=== PATIENT | male | born 1975 | race Caucasian/White ===

== ENCOUNTER 2022-05-18 10:36 | Emergency (ER) | payer SELFPAY ==
[~2022-05-18 10:36] MED LIST: Iopamidol 300 61% 100 ML VIAL FS ONE
[2022-05-18] MEDS ORDERED: Ondansetron PF 4 MG/2 ML Vial ONE (11:21)
[2022-05-18] MEDS ORDERED: Ketorolac Tromethamine 30 MG/ML VIAL ONE (11:21)
[2022-05-18] MEDS ORDERED: Fentanyl 100 MCG/2 ML VIAL ONE (11:21)
[2022-05-18 11:43] LABS: #Basophils 0.1 10x3/uL (0.0-0.2); #Eosinphils 0.3 10x3/uL (0.0-0.5); #Neutrophils 12.6 10x3/uL (1.5-8.4); %Basophils 0.4 % (0.0-2.0); %Eosinophils 1.8 % (0.0-6.0); %Lymphocytes 10.6 % (18.0-47.0); %Monocytes 6.4 % (0.0-10.0); %Neutrophils 80.1 % (40.0-75.0); Hemoglobin 15.4 g/dL (13.5-17.5); Mean Corpuscular HGB CONC 34.8 g/dL (32.0-36.0); Mean Corpuscular Hemoglobin 30.1 pg (27.0-33.0); Mean Corpuscular Volume 86.3 fl (81.2-95.1); Mean Platelet Volume 8.8 fl (7.4-10.4); Platelet Count 422 10x3/uL (150-450); RBC Distribution Width 12.4 % (11.5-14.5); Red Blood Cell (RBC) Count 5.12 10x6/uL (4.32-5.72); White Blood Cell (WBC) Count 15.7 10x3/uL (3.5-10.5)
[2022-05-18 11:44] LABS: ALT (SGPT) 12 U/L (8-55); AST (SGOT) 11 U/L (5-34); Alkaline Phosphatase 91 U/L (40-110); Anion Gap 14 mmol/L (10-20); BUN (Urea Nitrogen) 15 mg/dL (8.9-20.6); Bilirubin, Total 0.3 mg/dL (0.2-1.2); Calc. Creatinine Clearance 0 mL/min (70-130); Calcium 10.3 mg/dL (7.8-10.44); Carbon Dioxide 27 mmol/L (22-29); Chloride 98 mmol/L (98-107); Estimated GFR 65; Globulin 3.9 g/dL (2.4-3.5); Glucose 321 mg/dL (70-105); Potassium 4.2 mmol/L (3.5-5.1); Protein, Total 7.9 g/dL (6.0-8.3); Sodium 135 mmol/L (136-145)
[2022-05-18] MEDS ORDERED: Cefepime 2 GM VIAL ONE (12:21)
[2022-05-18] MEDS ORDERED: PROPOFOL 20 ML ONE (13:53)
[2022-05-18] MEDS ORDERED: Lidocaine 1% w/Epinephrine 1:200K 30 ML VIAL ONE (14:01)
[2022-05-18] MEDS ORDERED: Boostrix 0.5 ML (Tdap) VIAL (>/=7 yrs of age) ONE (14:57)
== END 2022-05-18 16:16 | disposition home or self-care (01) ==
LOC: CSHERS 10:36
DX: L02.31 Cutaneous abscess of buttock (principal); E11.9 Type 2 diabetes mellitus without complications; F17.210 Nicotine dependence, cigarettes, uncomplicated
CPT/HCPCS: 36415; 46040; 74177; 80053; 83605; 85025; 87040; 90471; 90715; 94760; 96374; 96375; 99156; J0692; J1885; J2405; J2704; J3010; J3370; Q9967

== ENCOUNTER 2022-06-02 11:14 | Emergency (ER) | payer SELFPAY ==
[2022-06-02 11:51] LABS: #Basophils 0.1 10x3/uL (0.0-0.2); #Eosinphils 0.3 10x3/uL (0.0-0.5); #Monocytes 0.9 10x3/uL (0.0-1.1); #Neutrophils 8.3 10x3/uL (1.5-8.4); %Basophils 0.9 % (0.0-2.0); %Eosinophils 2.5 % (0.0-6.0); %Lymphocytes 16.9 % (18.0-47.0); %Monocytes 7.5 % (0.0-10.0); %Neutrophils 71.7 % (40.0-75.0); Hemoglobin 14.6 g/dL (13.5-17.5); Mean Corpuscular HGB CONC 34.2 g/dL (32.0-36.0); Mean Corpuscular Volume 87.7 fl (81.2-95.1); Platelet Count 490 10x3/uL (150-450); RBC Distribution Width 13.2 % (11.5-14.5); Red Blood Cell (RBC) Count 4.87 10x6/uL (4.32-5.72); White Blood Cell (WBC) Count 11.6 10x3/uL (3.5-10.5)
[2022-06-02 12:06] LABS: ALT (SGPT) 17 U/L (8-55); AST (SGOT) 12 U/L (5-34); Albumin 3.9 g/dL (3.5-5.0); Alkaline Phosphatase 89 U/L (40-110); Anion Gap 12 mmol/L (10-20); BUN (Urea Nitrogen) 14 mg/dL (8.9-20.6); Bilirubin, Total 0.5 mg/dL (0.2-1.2); Calc. Creatinine Clearance 0 mL/min (70-130); Calcium 9.4 mg/dL (7.8-10.44); Carbon Dioxide 28 mmol/L (22-29); Chloride 97 mmol/L (98-107); Estimated GFR 88; Globulin 3.5 g/dL (2.4-3.5); Glucose 377 mg/dL (70-105); Potassium 4.2 mmol/L (3.5-5.1); Protein, Total 7.4 g/dL (6.0-8.3); Sodium 133 mmol/L (136-145)
[2022-06-02] MEDS ORDERED: Morphine 4 MG/ML VIAL ONE (14:20)
== END 2022-06-02 16:13 | disposition home or self-care (01) ==
LOC: CSHERS 11:14
DX: K61.0 Anal abscess (principal); I10 Essential (primary) hypertension; E11.9 Type 2 diabetes mellitus without complications; F17.210 Nicotine dependence, cigarettes, uncomplicated
CPT/HCPCS: 36415; 74177; 80053; 83605; 85025; 85652; 86140; 87040; 87070; 87205; 96374; J2270; Q9967

== ENCOUNTER 2022-06-30 11:34 | Emergency (ER) | payer SELFPAY ==
[2022-06-30] MEDS ORDERED: Morphine 4 MG/ML VIAL ONE ×2 (12:27→13:27)
[2022-06-30] MEDS ORDERED: Ondansetron PF 4 MG/2 ML Vial ONE ×2 (12:27→16:21)
[2022-06-30 12:42] LABS: #Basophils 0.1 10x3/uL (0.0-0.2); #Eosinphils 0.3 10x3/uL (0.0-0.5); #Monocytes 1.2 10x3/uL (0.0-1.1); #Neutrophils 9.6 10x3/uL (1.5-8.4); %Basophils 0.5 % (0.0-2.0); %Eosinophils 1.9 % (0.0-6.0); %Lymphocytes 16.6 % (18.0-47.0); %Monocytes 8.9 % (0.0-10.0); %Neutrophils 71.7 % (40.0-75.0); Hemoglobin 16.7 g/dL (13.5-17.5); Mean Corpuscular HGB CONC 35.8 g/dL (32.0-36.0); Mean Corpuscular Hemoglobin 30.4 pg (27.0-33.0); Mean Corpuscular Volume 85.1 fl (81.2-95.1); Mean Platelet Volume 9.3 fl (7.4-10.4); Platelet Count 303 10x3/uL (150-450); RBC Distribution Width 13.2 % (11.5-14.5); Red Blood Cell (RBC) Count 5.49 10x6/uL (4.32-5.72); White Blood Cell (WBC) Count 13.3 10x3/uL (3.5-10.5)
[2022-06-30 12:48] LABS: ALT (SGPT) 16 U/L (8-55); AST (SGOT) 13 U/L (5-34); Albumin 4.1 g/dL (3.5-5.0); Alkaline Phosphatase 79 U/L (40-110); Anion Gap 15 mmol/L (10-20); BUN (Urea Nitrogen) 13 mg/dL (8.9-20.6); Bilirubin, Total 0.8 mg/dL (0.2-1.2); Calc. Creatinine Clearance 0 mL/min (70-130); Calcium 9.7 mg/dL (7.8-10.44); Carbon Dioxide 25 mmol/L (22-29); Chloride 96 mmol/L (98-107); Estimated GFR 90; Globulin 3.3 g/dL (2.4-3.5); Glucose 357 mg/dL (70-105); Potassium 3.6 mmol/L (3.5-5.1); Protein, Total 7.4 g/dL (6.0-8.3); Sodium 132 mmol/L (136-145)
[2022-06-30 13:23] LABS: SARS-CoV-2 NAA Rapid Test Not Detected (NotDetected)
[2022-06-30] MEDS ORDERED: HumaLOG 300 UNITS/3 ML VIAL SC SCH (13:30)
[2022-06-30] MEDS ORDERED: Bupivacaine 0.25% HCL 30 ML VIAL ONE (14:07)
[2022-06-30] MEDS ORDERED: EPINEPHrine 1 MG/ML AMP ONE (14:07)
[2022-06-30] MEDS ORDERED: Lidocaine 2% 6 ML SYR ONE (14:07)
[2022-06-30] MEDS ORDERED: Lidocaine 2% MPF 10 ML AMP (For Epidural Use) ONE (14:14)
[2022-06-30] MEDS ORDERED: Fentanyl 100 MCG/2 ML VIAL ONE ×3 (14:54→17:46)
[2022-06-30] MEDS ORDERED: Morphine 2 MG/ML VIAL ONE (15:48)
[2022-06-30] MEDS ORDERED: Rocuronium Bromide 10 MG/ML (10ML VIAL) ONE (16:21)
[2022-06-30] MEDS ORDERED: Succinylcholine 200 MG/10 ml SYRINGE FS ONE (16:21)
[2022-06-30] MEDS ORDERED: Ketorolac Tromethamine 30 MG/ML VIAL ONE (16:21)
[2022-06-30] MEDS ORDERED: PROPOFOL 20 ML ONE (16:21)
[2022-06-30] MEDS ORDERED: Lidocaine 2% PF 5 ML VIAL ONE (16:21)
[2022-06-30] MEDS ORDERED: PHENYLEPHRINE-NS 100 MCG/ML 10 ML SYRINGE ONE (17:58)
[2022-06-30] MEDS ORDERED: ePHEDrine Sulfate 50 MG/10 ML VIAL ONE (17:59)
== END 2022-06-30 14:34 | disposition admitted as inpatient to this hospital (09) ==
LOC: CSHERS 11:34
DX: K61.1 Rectal abscess (principal); Z20.822 Contact with and (suspected) exposure to COVID-19; E11.9 Type 2 diabetes mellitus without complications; I10 Essential (primary) hypertension; F17.210 Nicotine dependence, cigarettes, uncomplicated; Z79.899 Other long term (current) drug therapy
CPT/HCPCS: 36416; 80053; 83605; 85025; 93005; 96374; 96375; 96376; J0171; J1815; J1885; J2001; J2270; J2272; J2405; J2704; J3010; S0020; U0002